=== PATIENT | female | born 1950 | race Two or more races ===

== ENCOUNTER → 2020-08-16 | Day surgery (SDC) | payer BC, MEDICARE ==
[~2020-08-16] VITALS: Ht 139.7 cm; Wt 56.0 kg
[~2020-08-16] MED LIST: ACETAMINOPHEN 325MG TABLET ONE; ACETAMINOPHEN 325MG TABLET PO NR; BALANCED SALT IRRIG SOLN 15ML ONE; BUPIVACAINE HCL/PF 0.75% (7.5MG/ML) 10ML ONE; CEFAZOLIN 1000MG PREMIX 50 ML IV ONE; CIPROFLOXACIN 0.3% OPHTH SOLN 2.5ML ONE; FENTANYL CITRATE/PF 50MCG/ML 2ML VIAL ONE; HYDROMORPHONE HCL/PF 2MG/ML CPJ IV PRN; LABETALOL 5MG/ML SYR 20 MG/4 ML SYRINGE IV PRN; LIDOCAINE HCL 2%/EPINEPHRINE 1:100,000 20 ML VIAL INFIL ONE; MEPERIDINE HCL/PF 25MG/ML CPJ IV PRN; MIDAZOLAM HCL 2 MG/2 ML VIAL ONE; NEO/POLYMYX B SULF/DEXAMETH OPHTH OINT 3.5GM ONE; ONDANSETRON HCL 4MG/2ML INJ IV PRN; PREDNISOLONE ACETATE 1% OPHTH DROPS 5ML ONE; TETRACAINE 0.5% OPHTH DROPS 4ML ONE; TRIAMCINOLONE ACETONIDE 40MG/ML 1ML VIAL ONE
[2020-08-16 09:03] LABS: CHLORIDE 110 mEq/L (98-107)
[2020-08-16 09:09] LABS: BASOPHILS % 0.5 % (0.0-2.0); EOSINOPHILS % 1.5 % (0.0-5.0); LYMPHOCYTES % 29.4 % (20.0-50.0); MEAN CORPUSCULAR HEMOGLOBIN 27.4 pg (28.0-32.0); MEAN CORPUSCULAR VOLUME 84.7 fL (81.0-99.0); MONOCYTES % 5.4 % (2.0-8.0); NEUTROPHILS % 63.2 % (40.0-76.0); PLATELET 182 x1000/uL (130-400); RED BLOOD CELL COUNT 4.73 mill/uL (4.2-5.4); RED CELL DISTRIBUTION WIDTH 16.6 % (11.6-14.6)
[2020-08-16 09:18] VITALS: BP 134/68
== END | disposition home or self-care (01) ==
LOC: ER 07:34 → EDBD 07:34 → ER 10:18 → OR 13:27 → CANBEDREQ 08-17 21:33
PROVIDERS: ATTEND Ophthalmology
DX: T85.398A Other mechanical complication of other ocular prosthetic devices, implants and grafts, initial encounter (principal); E11.9 Type 2 diabetes mellitus without complications; E78.00 Pure hypercholesterolemia, unspecified; Z90.710 Acquired absence of both cervix and uterus; Z98.891 History of uterine scar from previous surgery; Z98.890 Other specified postprocedural states; Y83.8 Other surgical procedures as the cause of abnormal reaction of the patient, or of later complication, without mention of misadventure at the time of the procedure
CPT/HCPCS: 36415; 67120; 80053; 85025; 87426; 99285; J0690; J2250; J3010; J3490; J3301

== ENCOUNTER → 2025-04-30 | Day surgery (SDC) | payer OTHER ==
[~2025-04-30] VITALS: Ht 142.2 cm; Wt 54.4 kg
[~2025-04-30] MED LIST changes: +ACETAMINOPHEN 1,000MG/100ML PREMIX IV PRN; +ACETAMINOPHEN 1000MG/100ML 100 ML IV PRN; -ACETAMINOPHEN 325MG TABLET ONE; -ACETAMINOPHEN 325MG TABLET PO NR; +BALANCED SALT IRRIG SOLN COMB1 500ML OP SCH; -CEFAZOLIN 1000MG PREMIX 50 ML IV ONE; +CYCLOPENTOLATE HCL 1% OPHTH DROPS 2ML ONE; +CYCLOPENTOLATE HCL 1% OPHTH DROPS 2ML RIGHTEYE NR; +ESOM40CA65 PO; +FELO10TA45 PO; +HYALURONATE SODIUM 10MG/ML 0.55ML SYRINGE IO ONE; +HYDRALAZINE 20MG/ML VIAL IV PRN; -HYDROMORPHONE HCL/PF 2MG/ML CPJ IV PRN; +LABETALOL 5MG/ML 4ML INJ IV PRN; -LABETALOL 5MG/ML SYR 20 MG/4 ML SYRINGE IV PRN; +LACTATED RINGERS 1,000 ML IV SCH; +LIDOCAINE HCL 2% 5ML SYRINGE IV ONE; -LIDOCAINE HCL 2%/EPINEPHRINE 1:100,000 20 ML VIAL INFIL ONE; +LIDOCAINE HCL/EPINEPHRINE 2%-EPI 1:200,000 20ML VIAL ONE; +LORAZEPAM 2MG/ML UD SYRINGE IV PRN; +LOSA50TA41 PO; -ONDANSETRON HCL 4MG/2ML INJ IV PRN; +PHENYLEPHRINE HCL 10% OPHTH DROPS 5ML ONE; +PHENYLEPHRINE HCL 10% OPHTH DROPS 5ML RIGHTEYE NR; +PROPOFOL 200MG/20ML VIAL IV ONE; -TRIAMCINOLONE ACETONIDE 40MG/ML 1ML VIAL ONE; +TROPICAMIDE 1% OPHTH DROPS 15ML ONE; +TROPICAMIDE 1% OPHTH DROPS 15ML RIGHTEYE NR; +TRYPAN BLUE 0.5 ML DISP.SYRIN IO ONE
[2025-04-30 11:50] LABS: BASOPHILS % 0.5 % (0.0-2.0); EOSINOPHILS % 2.2 % (0.0-5.0); HEMATOCRIT. 46.9 % (36.0-48.0); HEMOGLOBIN. 15.6 g/dL (12.0-16.0); LYMPHOCYTES % 46.7 % (20.0-50.0); MONOCYTES % 5.7 % (2.0-8.0); NEUTROPHILS % 44.9 % (40.0-76.0); RED BLOOD CELL COUNT 4.73 mill/uL (4.2-5.4); RED CELL DISTRIBUTION WIDTH 14.5 % (11.6-14.6)
[2025-04-30 12:16] LABS: CREATININE 0.7 mg/dL (0.6-1.0); UREA NITROGEN BLOOD 16 mg/dL (9-23)
[2025-04-30 13:06] LABS: PLATELET 161 x1000/uL (130-400)
[2025-04-30] MEDS: ONDANSETRON HCL 4MG/2ML INJ IV PRN (15:44)
[2025-04-30] MEDS: FAMOTIDINE 20MG/2ML VIAL IV PRN (15:44)
[2025-04-30] MEDS: HYDRALAZINE 20MG/ML VIAL IV PRN (15:45)
[2025-04-30 15:46] VITALS: BP 175/90; PULSE 85; RESP 21
[2025-04-30] MEDS: HYDROMORPHONE HCL/PF 1MG/ML INJ IV PRN (15:46)
== END | disposition home or self-care (01) ==
LOC: OR 10:52
PROVIDERS: ATTEND Ophthalmology
DX: H25.21 Age-related cataract, morgagnian type, right eye (principal); H25.011 Cortical age-related cataract, right eye; E78.5 Hyperlipidemia, unspecified; I10 Essential (primary) hypertension; Z85.3 Personal history of malignant neoplasm of breast; Z79.899 Other long term (current) drug therapy; Z98.890 Other specified postprocedural states
CPT/HCPCS: 66982; 80048; 85025; 36415; 93005; Q9957; V2632; J3010; J3490 ×3; J1308; J0360; J2003; J2250; J2405; J2704; J1171; A4217